=== PATIENT | female | born 1940 | race Caucasian/White ===

== ENCOUNTER 2022-09-13 01:47 | Outpatient (REF) | payer MEDICARE, MEDICAID, SELFPAY ==
[2022-09-13 08:03] LABS: Basophils Absolute Auto 0.1 10^3/uL (0.0-0.1); Basophils Percent Auto 1.7 % (0.2-2.0); Eosinophils Absolute Auto 0.1 10^3/uL (0.0-0.7); Eosinophils Percent Auto 2.8 % (0.9-7.0); Hematocrit 36.3 % (36.0-48.0); Hemoglobin 11.6 g/dL (12.0-16.0); Immature Granulocytes Abs Auto 0.02 10^3/uL (0.00-0.03); Immature Granulocytes Pct Auto 0.4 % (0.0-0.5); Lymphocytes Absolute Auto 1.3 10^3/uL (1.2-3.8); Lymphocytes Percent Auto 28.1 % (20.5-60.0); Mean Corpuscular Hemoglobin 30.4 pg (26.7-34.0); Mean Corpuscular Volume 95.3 fL (81.0-99.0); Mean Platelet Volume 9.9 fL (9.5-13.5); Monocytes Absolute Auto 0.4 10^3/uL (0.3-0.8); Monocytes Percent Auto 9.4 % (1.7-12.0); Neutrophils Absolute Auto 2.7 10^3/uL (1.4-6.5); Neutrophils Percent Auto 57.6 % (43.0-75.0); Platelet Count 193 10^3/uL (150-450); Red Blood Count 3.81 10^6/uL (4.20-5.40); Red Cell Distribution Width 14.3 % (11.0-15.0); White Blood Count 4.7 10^3/uL (4.0-11.0)
[2022-09-13 08:35] LABS: Estimated Average Glucose 123 mg/dL; Glycohemoglobin A1C 5.9 % (4.5-6.2)
[2022-09-13 09:58] LABS: Anion Gap 10.4; BUN Creatinine Ratio 16.9; Calcium 8.5 mg/dL (8.5-10.1); Carbon Dioxide 28.8 mmol/L (21.0-32.0); Chloride 104 mmol/L (98-107); Estimated GFR (African America >60 (>=60); Estimated GFR (Non-African Ame >60 (>=60); Glucose 87 mg/dL (74-106); Potassium 4.2 mmol/L (3.5-5.1); Sodium 139 mmol/L (136-145)
== END 2022-09-13 01:48 | disposition home or self-care (01) ==
LOC: LAB 01:47
PROVIDERS: PCP Family Medicine; Visit Provider Family Medicine
DX: E11.9 Type 2 diabetes mellitus without complications (principal)
CPT/HCPCS: 36415; 80048; 82306; 83036; 84443; 85025

== ENCOUNTER 2022-09-15 02:26 | Outpatient (REF) | payer MEDICARE, MEDICAID, SELFPAY ==
[2022-09-15 11:12] LABS: Chol HDL Ratio 2.6; Cholesterol 196 mg/dL (<=200); HDL Cholesterol 75 mg/dL (40-60); Triglycerides 38 mg/dL (<=150); VLDL CHOLESTEROL 7.6 mg/dL
== END 2022-09-15 02:27 | disposition home or self-care (01) ==
LOC: LAB 02:26
PROVIDERS: PCP Family Medicine; Visit Provider Family Medicine
DX: E78.5 Hyperlipidemia, unspecified (principal)
CPT/HCPCS: 36415; 80061

== ENCOUNTER 2022-09-29 04:20 | Outpatient (REF) | payer MEDICARE, MEDICAID, SELFPAY ==
[2022-09-29 09:27] LABS: Free T3 1.79 pg/mL (2.18-3.98); Thyroid Stimulating Hormone 11.287 uIU/mL (0.358-3.740)
== END 2022-09-29 04:21 | disposition home or self-care (01) ==
LOC: LAB 04:20
PROVIDERS: PCP Family Medicine; Visit Provider Family Medicine
DX: E03.9 Hypothyroidism, unspecified (principal)
CPT/HCPCS: 36415; 84439; 84443; 84481

== ENCOUNTER 2022-10-30 10:44 | Outpatient (REF) | payer MEDICARE, MEDICAID, SELFPAY ==
[2022-10-30 14:01] LABS: Thyroid Stimulating Hormone 3.328 uIU/mL (0.358-3.740)
== END 2022-10-30 10:45 | disposition home or self-care (01) ==
LOC: LAB 10:44
PROVIDERS: PCP Family Medicine
DX: Z51.81 Encounter for therapeutic drug level monitoring (principal); Z79.899 Other long term (current) drug therapy
CPT/HCPCS: 36415; 84443

== ENCOUNTER 2022-12-11 04:21 | Outpatient (REF) | payer MEDICARE, MEDICAID, SELFPAY ==
[2022-12-11 09:08] LABS: Basophils Absolute Auto 0.1 10^3/uL (0.0-0.1); Basophils Percent Auto 1.5 % (0.2-2.0); Eosinophils Absolute Auto 0.2 10^3/uL (0.0-0.7); Eosinophils Percent Auto 3.2 % (0.9-7.0); Hematocrit 32.1 % (36.0-48.0); Hemoglobin 10.3 g/dL (12.0-16.0); Immature Granulocytes Abs Auto 0.01 10^3/uL (0.00-0.03); Immature Granulocytes Pct Auto 0.2 % (0.0-0.5); Lymphocytes Absolute Auto 1.5 10^3/uL (1.2-3.8); Lymphocytes Percent Auto 31.3 % (20.5-60.0); Mean Corpuscular HGB Conc 32.1 g/dL (29.9-35.2); Mean Corpuscular Hemoglobin 29.5 pg (26.7-34.0); Mean Platelet Volume 10.2 fL (9.5-13.5); Monocytes Absolute Auto 0.4 10^3/uL (0.3-0.8); Monocytes Percent Auto 8.9 % (1.7-12.0); Neutrophils Absolute Auto 2.5 10^3/uL (1.4-6.5); Neutrophils Percent Auto 54.9 % (43.0-75.0); Platelet Count 199 10^3/uL (150-450); Red Blood Count 3.49 10^6/uL (4.20-5.40); Red Cell Distribution Width 13.3 % (11.0-15.0); White Blood Count 4.6 10^3/uL (4.0-11.0)
[2022-12-11 10:51] LABS: Sodium 138 mmol/L (136-145)
[2022-12-11 10:52] LABS: Alanine Aminotransferase 16 U/L (14-59); Albumin Globulin Ratio 0.9; Albumin Level 2.8 g/dL (3.4-5.0); Alkaline Phosphatase 75 U/L (46-116); Anion Gap 13.1; Aspartate Amino Transferase 13 U/L (15-37); BUN Creatinine Ratio 26.3; Bilirubin Total 0.3 mg/dL (0.2-1.0); Carbon Dioxide 23.8 mmol/L (21.0-32.0); Chloride 105 mmol/L (98-107); Estimated GFR (African America >60 (>=60); Estimated GFR (Non-African Ame >60 (>=60); Globulin 3.2 g/dL; Glucose 77 mg/dL (74-106); Potassium 3.9 mmol/L (3.5-5.1)
== END 2022-12-11 04:22 | disposition home or self-care (01) ==
LOC: LAB 04:21
PROVIDERS: PCP Family Medicine; Visit Provider Family Medicine
DX: I10 Essential (primary) hypertension (principal); R42 Dizziness and giddiness
CPT/HCPCS: 36415; 80053; 85025

== ENCOUNTER 2023-01-31 10:45 | Emergency (ER) | payer MEDICARE, MEDICAID, SELFPAY ==
[2023-01-31 10:49] VITALS: BP 147/76; PULSE 68; RESP 16; TEMP 36.6; O2SAT 94; BMI 21.3
--- NOTE | 2023-01-31 11:16 | XR_ITS ---
The [address] [address] Patient Name: JOSE C GUERRIER MRN: [id number] date: 1940 Sex: F Assigned Patient Location: ED.MAIN Current Patient Location: ER Accession/Order Number: [id number] Exam Date: 01/31/2023 11:32 Report Date: 01/31/2023 12:13 At the request of: KAITLYNN CAREY Procedure: XR cervical spine 2-3V EXAM: XR cervical spine 2-3V HISTORY: fall, pain COMPARISON: None. TECHNIQUE: 3 views cervical spine. FINDINGS: Bones: No radiographic evidence of fracture. Normal vertebral body heights. No aggressive appearing lesion. Alignment: No pathologic listhesis . Atlantodental interval is normal. Degenerative findings: Moderate spondylosis. Additional findings: None. XR/XR cervical spine 2-3V IMPRESSION: No acute fracture. Electronically authenticated by: DORENE LAM Date: 01/31/2023 12:13
--- NOTE | 2023-01-31 11:17 | XR_ITS ---
The [address] [address] Patient Name: JOSE C GUERRIER MRN: [facility]:[id number] date: 1940 Sex: F Assigned Patient Location: ED.MAIN Current Patient Location: ED.MAIN Accession/Order Number: [id number] Exam Date: 01/31/2023 11:32 Report Date: 01/31/2023 12:11 At the request of: KAITLYNN CAREY Procedure: XR lumbar spine 2-3V EXAM: XR lumbar spine 2-3V HISTORY: fall, pain COMPARISON: None. TECHNIQUE: 3 views lumbar spine. FINDINGS: Bones: No radiographic evidence of fracture. Normal vertebral body heights. No aggressive appearing lesion. Diffuse osteopenia. Alignment: There is dextroscoliosis of the mid lumbar spine. Degenerative findings: Degenerative changes of the lumbar spine, characterized by endplate osteophyte and multilevel disc desiccation. Additional findings: None. XR/XR lumbar spine 2-3V IMPRESSION: No acute fracture. Electronically authenticated by: DORENE LAM Date: 01/31/2023 12:11
--- NOTE | 2023-01-31 11:17 | ED.FALL1 ---
HPI - Fall General Chief Complaint: Fall Time Seen by Provider: 01/31/23 11:14 Source: patient Mode of arrival: ambulance Limitations: altered mental status History of Present Illness HPI Narrative: 82-year-old female presents for pain in her neck and her lower back. She fell in her residence about a week ago. She has not yet been seen for this issue. It hurts when she walks. No LOC or injury to her extremities and the pain is moderate and worse in certain positions. Related Data Allergies Allergy/AdvReac Type Severity Reaction Status Date / Time ciprofloxacin [From Cipro] Allergy Severe Verified 01/31/23 10:55 latex Allergy Severe Verified 01/31/23 10:55 adhesive tape Allergy Unknown Verified 01/31/23 10:55 silicone Allergy Unknown Verified 01/31/23 10:55 Review of Systems ROS Narrative A ten point review of systems is negative except as noted above. PFSH PFS Social History Smoking status: Never smoker Exam Narrative Exam Narrative: Nurses note and vital signs reviewed and patient is not hypoxic. General: The patient appears well and in no apparent distress. Patient is resting comfortably on cart. Skin: Warm, dry, no pallor noted. There is no rash noted. Head: Normocephalic, atraumatic Eye: Normal conjunctiva, no drainage Ears, Nose, Mouth, and Throat: oral mucosa is moist. Nares patent. Cardiovascular: Regular Rate and Rhythm Respiratory: Patient is in no distress, no accessory muscle use, lungs are clear to auscultation, no wheezing, rales or rhonchi Back: minimal tenderness in the posterior neck and across her lower back without bruise rash or abrasion. No tenderness in the thoracic area GI: soft and nontender Musculoskeletal: The patient has no evidence of calf tenderness, no pitting edema, symmetrical pulses noted bilaterally Neurological: A&O, normal speech Psychiatric: Cooperative Constitutional Vital Signs, click to edit/add: Last Vital Signs Temp 97.9 F 01/31/23 10:49 Pulse 68 01/31/23 10:49 Resp 16 01/31/23 10:49 BP 147/76 H 01/31/23 10:49 Pulse Ox 94 L 01/31/23 10:49 O2 Del Method Room Air 01/31/23 10:49 Course Vital Signs Vital signs: Vital Signs Temperature 97.9 F 01/31/23 10:49 Pulse Rate 68 01/31/23 10:49 Respiratory Rate 16 01/31/23 10:49 Blood Pressure 147/76 H 01/31/23 10:49 Pulse Oximetry 94 L 01/31/23 10:49 Oxygen Delivery Method Room Air 01/31/23 10:49 Temperature 97.9 F 01/31/23 10:49 Pulse Rate 68 01/31/23 10:49 Respiratory Rate 16 01/31/23 10:49 Blood Pressure 147/76 H 01/31/23 10:49 Pulse Oximetry 94 L 01/31/23 10:49 Oxygen Delivery Method Room Air 01/31/23 10:49 MDM - Fall MDM Narrative Medical decision making narrative: x-rays per radiologist showed no acute findings and she is released. Findings were discussed with the patient. Differential Diagnosis Differential diagnosis: Likely other (fall, fracture, contusion) Imaging Data C-spine, lumbar spine x-rays: Radiologist's impression: no acute findings per radiologist Discharge Plan Discharge Chief Complaint: Fall Clinical Impression: Fall Patient Disposition: Home, Self-Care Time of Disposition Decision: 12:34 Condition: Good Mode of Transportation: Private Vehicle Instructions: Fall Prevention for Older Adults (ED), Fall Prevention (ED) Stand Alone Forms: Portal Instructions Referrals: ATIF LARIOS [Primary Care Provider] - 1 week
== END 2023-01-31 13:04 | disposition home or self-care (01) ==
PROVIDERS: Emergency Provider Emergency Medicine; PCP Family Medicine
DX: Z04.3 Encounter for examination and observation following other accident (principal)
CPT/HCPCS: 72040; 72100; 99284